=== PATIENT | male | born 1995 | race Caucasian/White ===

== ENCOUNTER 2016-11-04 10:26 | Inpatient (IN) | payer BC, MEDICAID ==
[~2016-11-04] VITALS: Ht 188 cm; Wt 218.6 kg
--- NOTE | ~2016-11-04 | DS ---
PATIENT'S NAME: FRITZ RECINOS [facility] AGE: 21 Y [address] ROOM: [id number] [place], [place] [address] LOCATION: GPCU ADMIT DATE: 11/04/2016 Discharge Summary DISCHARGE DATE: 11/08/2016 FAMILY PHYSICIAN: Bonilla Fletcher MD ATTENDING PHYSICIAN: Ciaran King PRIMARY DIAGNOSES: 1. Suicidal behavior with attempts. 2. Insulin overdose, intentional. 3. Autism. 4. Essential hypertension. 5. Morbid obesity. PRINCIPAL PROCEDURES DONE: None was indicated in the patient. LABORATORY DATA: WBC was stable throughout the hospital stay; the last one done prior to discharge was 11.7, H and H were stable throughout the hospital stay at 15.3/45.1, and platelets were 246, was stable throughout the hospital stay. Creatinine was stable throughout the hospital stay at 1.0 upon discharge, sodium was 137, potassium was 4.2, chloride was 103, bicarb was 27, calcium was 8.7, BUN was 12, and glucose was 123. Anion gap was normal. AST was 17 and ALT was 29. HOSPITAL COURSE: For history of present illness, please take a look at the H and P, which was done by Dr. King. The patient was admitted to Progressive Care Unit. He was put on one-to-one watch, given his suicidal behavior with intentional insulin overdose. He was started on 20% of dextrose, which was later de-escalated to 10% dextrose while his insulin regimen were put on hold throughout his whole hospital stay. Slowly his D10 was weaned down, and his blood sugar still remained stable at low 100s, and eventually on his hospital day two, his D10 dextrose 10% was discontinued, still also monitoring his blood sugars. His blood sugars remained stable through his whole hospital stay. Highest number that was observed was 214 while not receiving any insulin. By the second day of his hospital stay, the patient again mentioned to the Nursing team that he was going to hurt himself. He did get a Psych evaluation; however, after the patient was evaluated, the Psychiatry felt that the patient could go home and have an outpatient followup as the patient had denied any suicidal thoughts or plan. However, the night of the Psychiatric consult, the patient tried to wrap a cord around his neck. After this, the patient was put back on 1:1 from his initial q.15 minute watch by the psychiatrist. Plan at this point was for patient to be discharged to an [facility]patient [facility]. However, numerous facilities were attempted, which included [facility], but they all refused secondary to the nonavailability of bed space. The other secondary to the fact that the patient also had associated autistic disorder. PATIENT'S NAME: FRITZ RECINOS [facility] AGE: 21 Y [address] ROOM: [id number] [place], [place] [address] LOCATION: GPCU ADMIT DATE: 11/04/2016 Discharge Summary DISCHARGE DATE: 11/08/2016 FAMILY PHYSICIAN: Bonilla Fletcher MD ATTENDING PHYSICIAN: Ciaran King However, the night prior to discharge, the patient was calm and cooperative with his care, and did not demonstrate anymore suicidal behaviors. Please also note that during his hospital stay, a code lindsey was also called because of excessive violence by the patient as he insisted that he wanted to go home. However, on the day of discharge, the patient's mentation was stable. He denied any suicidal thoughts, and he was very cooperative with the Nursing team. Family also reported that this is the best that they have seen him mental martini for the last three days. Since all the inpatient psychiatric facilities were tried without success, it was then deemed that the patient could be discharged home. So, I did speak with the patient to try and be cooperative with his parents, and if any abnormal suicidal behavior is observed, that he will be brought back to the ER. This was also explained to the patient's family. MEDICATIONS UPON DISCHARGE: Include 1. Lipitor 10 mg p.o. daily. 2. Clonidine 0.2 mg p.o. three times daily. 3. Haldol 1 mg p.o. daily and Haldol 2 mg p.o. at bedtime. 4. Asenapine 10 mg sublingual everyday. 5. Lisinopril 5 mg p.o. daily. 6. Latuda 160 mg p.o. daily with food. 7. Klonopin 0.5 mg p.o. twice daily p.r.n. 8. Fluvoxamine 100 mg p.o. at bedtime. 9. Cogentin 2 mg p.o. twice daily. 10. Excedrin Migraine two capsules p.o. every 12 hours p.r.n. 11. Insulin lispro 60 units subq twice daily, start when blood sugar is greater than 250. 12. Insulin lispro 20 units subq daily before dinner, start when sugar is greater than 250. 13. Trulicity 0.5 mL subq on Sundays, start when sugar is greater than 300. 14. Insulin Tresiba 84 units subq daily, start when sugar is greater than 250. 15. Tramadol 50 mg p.o. three times daily as needed. Discharge time spent on this patient is approximately 35 minutes, which included a great deal of time spent with Care Management team to ensure safe discharge. MD CALI MACK/talia PATIENT'S NAME: FRITZ RECINOS [facility] AGE: 21 Y [address] ROOM: [place] [address] LOCATION: GPCU ADMIT DATE: 11/04/2016 Discharge Summary DISCHARGE DATE: 11/08/2016 FAMILY PHYSICIAN: Bonilla Fletcher MD ATTENDING PHYSICIAN: Ciaran King /[id number] d: 11/09/16 0336 t: 11/10/16 1441, DISCHARGE SUMMARY
--- NOTE | ~2016-11-04 | HP ---
PATIENT'S NAME: FRITZ RECINOS [facility] AGE: 21 Y [address] ROOM: [id number] [place], [place] [address] LOCATION: GPCU ADMIT DATE: 11/04/2016 History & Physical DISCHARGE DATE: FAMILY PHYSICIAN: SIOMARA JANE MD ATTENDING PHYSICIAN: ABHAY MASTERSON DATE OF SERVICE: CHIEF COMPLAINT: Overdosing of insulin. HISTORY OF PRESENT ILLNESS: This is a 21-year-old, male who has a diagnosis of diabetes, unclear is type 1 or type 2. Likely type 1 given his young age, and also has a history of autism. His home regimen of insulin is Tresiba subcutaneous long- acting insulin 84 units every morning and also Humalog subcutaneous insulin 16 units with breakfast and 16 units with lunch, and 20 units with dinner. In addition, on every Saturday, he also uses Trulicity which is a GLP-1 receptor agonist, anti-diabetic medication, and he uses 1.5 mg subcutaneous once weekly on every Saturday. Last dose of this was last Saturday. The patient lives alone, but his parents both mother and father live about two blocks away and usually, the parents come to see the son three times a day to make sure that the son is injecting the right amount of insulin. They do not give to him, but they supervise him. However, this morning, the patient called his parents telling them that he has already injected 530 units subcutaneous of Tresiba and also already injected 16 units of Humalog subcutaneously. Parents went to check on the son right away and they check the fingerstick glucose, it was read at 226. This was around 9:15 a.m. this morning. The patient denies any symptoms. He is very diaphoretic and this is very frequent due to his body size according to patient's parents. The patient's parents brought the patient here for further care. When I questioned the patient about if he tried to do this intentionally to hurt himself, he said yes. I asked twice and the parents also were in the room. When I asked him was he suicidal, he said yes. When I asked why, he would not answer me. The parents tell me that sometimes their son always say things like this just to try to get people's attention. This is the first time that patient has overdosed on insulin according to patient's parents. The patient's parents also denie any prior suicide attempt from the patient. In the emergency room, fingerstick glucose was checked. On arrival, it was 192. REVIEW OF SYSTEMS: As mentioned in the History of Present Illness. All other systems were reviewed and were negative except for those mentioned in the History of Present Illness. PATIENT'S NAME: FRITZ RECINOS [facility] AGE: 21 Y [address] ROOM: [id number] [place] [id number] LOCATION: GPCU ADMIT DATE: 11/04/2016 History & Physical DISCHARGE DATE: FAMILY PHYSICIAN: SIOMARA JANE MD ATTENDING PHYSICIAN: ABHAY MASTERSON PAST MEDICAL HISTORY: Insulin-dependent diabetes. ALLERGIES: NO KNOWN DRUG ALLERGIES. HOME MEDICATIONS: 1. Tresiba subcutaneous insulin 84 units every morning. 2. Subcutaneous insulin Humalog 16 units every morning with breakfast and 16 units with lunch, and also 20 units with dinner every day. 3. Subcutaneous Trulicity 1.5 mg every Saturday once a day. SOCIAL HISTORY: Parents denies any alcohol use or cigarette use or illegal drug use in the patient. FAMILY HISTORY: Both parents are healthy. PAST SURGICAL HISTORY: None. PHYSICAL EXAMINATION: VITAL SIGNS: At the time of evaluation, temperature is 97.5, heart rate is 95, respirations are 16, blood pressure is 129/93, and saturation 95% on room air. GENERAL APPEARANCE: The patient is diaphoretic, but the patient's parents say this is chronic for the patient due to his large body habitus. The patient is alert and oriented x3. Answers my questions appropriately, but sometimes he answers questions very slowly. In no acute distress. HEENT: Pupils equally round and reactive to light. Extraocular muscles intact. Anicteric sclerae. Nasal turbinates are normal bilaterally. Moist oral mucosa. NECK: No JVD. CARDIOVASCULAR: Regular rate and rhythm. Normal S1 and S2. No murmurs, no rubs, no gallops. RESPIRATORY: Clear to auscultation. ABDOMEN: Obese, soft, nontender, no mass, bowel sounds present, and no hepatosplenomegaly. EXTREMITIES: No edema in the upper or lower extremities. SKIN: No ulcer, no rash, no cyanosis. NEUROLOGICAL: Grossly nonfocal except that patient is very slow in answering questions sometimes, but he is alert and oriented x3. PATIENT'S NAME: FRITZ RECINOS [facility] AGE: 21 Y [address] ROOM: [id number] [place], [place] [address] [facility] AD[facility] DATE: 11/04/2016 History & Physical DISCHARGE DATE: FAMILY PHYSICIAN: SIOMARA JANE MD ATTENDING PHYSICIAN: ABHAY MASTERSON LABORATORY DATA: White blood cells 9.0, hemoglobin 15.6, hematocrit 46.4, and platelets 263,000. Glucose 193, BUN 14, creatinine 1.0, sodium 138, potassium 4.2, chloride 106, CO2 of 25, and calcium 8.6. Total protein 7.6, albumin 3.5, AST 17, ALT 29, alkaline phosphatase 84, total bilirubin 0.6, anion gap 11.2, globulin 4.1, and GFR is more than 60. A1c is pending. IMAGING STUDIES: None. EMERGENCY ROOM COURSE: In the emergency room, the patient was started on dextrose 10% running at 100 mL/h and checking the fingerstick glucose every 30 minutes. As of 11:45 a.m., fingerstick glucose was 185. ASSESSMENT AND PLAN: 1. Regarding his insulin overdose: Unclear if this is a suicide attempt or accidental overdose given the patient has autism and he is not reliable. Given that he did admit to wanting to hurt himself, therefore, the patient was put on suicidal precaution with one-on-one sitter in the room at all times and consult Psychiatry. Ambulate only with assistance, in case the patient becomes hypoglycemic which can put him at fall risk. Can have a diabetic diet. I will treat him with close monitoring of the fingerstick glucose every half an hour and keep running with the dextrose 10% at 100 mL/h, and titrate the rate as necessary depending on the fingerstick glucose level. Given that the dextrose 10% can lower sodium, his sodium is 138 on arrival. I will be checking the sodium level at 5:00 p.m., 11:00 p.m., 5:00 a.m., and also 11:00 a.m. to make sure he is not hyponatremic. Per up-to-date, the subcutaneous insulin Tresiba, the onset of action is 1 hour and half-life elimination is 25 hours and time to peak is 9 hours. Therefore, the patient will be admitted with close monitoring until we can make sure that patient is not hypoglycemic due to the long half-life elimination of this long-acting insulin and also the time to peak is 9 hours. Further plan will depend on clinical course. 2. Regarding his autism: This is chronic. Nothing can be done for the patient. Continue care by his parents. 3. Regarding his questionable suicidal attempt: Refer to #1 for all the details. 4. Code Status: He is a full code. The patient is his own legal guardian. Parents at the healthcare proxy. Time spent in care on the day of admission 43 minutes where more than half of the time was spent in counseling, and also going over the plan of care and also addressing all the questions and concerns that the patient and the patient's parents had. I answered all the questions to their satisfaction. PATIENT'S NAME: FRITZ RECINOS [facility] AGE: 21 Y [address] ROOM: [place] [address] [facility] ADMIT DATE: 11/04/2016 History & Physical DISCHARGE DATE: FAMILY PHYSICIAN: SIOMARA JANE MD ATTENDING PHYSICIAN: ABHAY MASTERSON The remainder of the time was spent in chart review, interview, and also on the physical examination. Further plan will depend on clinical course. ABHAY MASTERSON MD CC/modl /[id number] D: [id number] T: [id number] HISTORY & PHYSICAL
--- NOTE | ~2016-11-04 | ER ---
PATIENT'S NAME: FRITZ RECINOS [facility] AGE: 21 Y [address] ROOM: [id number] [place], [place] [address] [facility] AD[facility] DATE: 11/04/2016 ER/Outpatient Report DISCHARGE DATE: FAMILY PHYSICIAN: SIOMARA JANE MD ATTENDING PHYSICIAN: ABHAY MASTERSON Time of Arrival: 1026 hours. Time of Evaluation: 1035 hours. IDENTIFICATION: A 21-year-old male. CHIEF COMPLAINT: Overdose of insulin. HISTORY OF PRESENT ILLNESS: The patient is a 21-year-old male, type 1 diabetic, who has autism as well. His parents went to a baseball game last night. Normally, he lives in his own apartment, but they attend to his medications. He was left to use his own insulin and this morning instead of taking his usual 84 units of Tresiba, he took 530 units subcu along with his Humalog 16 units this morning that he normally would take. He normally is on Trulicity 1.5 mg subcu on Sundays, but he did not take this today. When I asked the patient and his family why he took this extra medication, they said it was for "attention." I asked if he was trying to harm himself, then he said "yes," when I asked him why he said "I do not know." PAST MEDICAL HISTORY: ALLERGIES: NO KNOWN DRUG ALLERGIES. CURRENT MEDICATIONS: 1. Tresiba 84 units daily, he took 530 units today. 2. Humalog 16 units q.a.m., 16 units at lunch, and 20 units with supper. 3. Trulicity 1.5 mg subcu on Sundays, but he did not take today. 4. Clonidine 0.2 mg b.i.d. 5. Fluvoxamine 100 mg b.i.d. 6. Haldol 2 mg 1/2 tablet in the morning and 1 tablet at bedtime. 7. Atorvastatin 10 mg daily. 8. Clonazepam 0.5 mg b.i.d. 9. Latuda 80 mg 2 tablets at night. 10. Benztropine 1 mg 2 tablets 2 times a day. 11. Lisinopril 5 mg daily. PATIENT'S NAME: FRITZ RECINOS [facility] AGE: 21 Y [address] 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 Hospitalized in February of 2016. SOCIAL HISTORY: The patient lives in his own apartment, but monitored by his parents. Tobacco use, denies. Alcohol use, denies. Drug use, denies. REVIEW OF SYSTEMS: All systems reviewed and negative other than what is noted in the HPI. PHYSICAL EXAMINATION: VITAL SIGNS: Height 6 feet 2 inches and weight 220 kg. Blood pressure 129/93, pulse 95, respirations 16, temperature 97.5, and saturations 95% on room air. GENERAL: An obese male, in no acute distress. He does appear a little bit diaphoretic. He said he is not having the low blood sugar reaction. When he checked, it was 224 prior to arrival; however, at this time, he is nervous. HEENT: Head: Normocephalic, atraumatic. Eyes: Pupils equal and reactive to light and accommodation. Extraocular movements intact. Nose: Mucosa pink. No lesions or drainage. Mouth: No lesions. Pharynx benign. NECK: Supple. No lymphadenopathy. No nuchal rigidity. LUNGS: Clear to auscultation. HEART: Regular rate and rhythm. No murmur, rub, or gallop. ABDOMEN: Bowel sounds present. Protuberant abdomen, soft, nondistended, nontender. SKIN: [place], warm, and dry. No lesions or rashes noted. NEURO: The patient is alert and oriented x4. Cranial nerves 2 through 12 grossly intact. Motor strength 5/5 throughout. Sensation is intact to light touch. MUSCULOSKELETAL: No bony abnormalities. PSYCH: The patient has fairly good eye contact, does seem a little agitated at times, and a flat affect. LABORATORY DATA: Sodium 138, potassium 4.2, chloride 106, CO2 of 25, BUN 14, creatinine 1.0. Blood sugar 193. Liver enzymes normal. Hemoglobin A1c 6.0. Hemoglobin 15.6, hematocrit 46.4, platelets 263, white count 9.0. Acetaminophen level and aspirin level pending at this time. IMPRESSION: 1. Insulin overdose: The patient is currently stable. An IV was initiated. D10W to run at 100 mL/h per Dr. Masterson, hospitalist, who will be admitting the patient. Dr. Masterson did evaluate the patient in the emergency room. PATIENT'S NAME: FRITZ RECINOS [facility] AGE: 21 Y [address] ROOM: [place] [address] [facility] ADMIT DATE: 11/04/2016 ER/Outpatient Report DISCHARGE DATE: FAMILY PHYSICIAN: SIOMARA JANE MD ATTENDING PHYSICIAN: ABHAY MASTERSON The checks were initially ordered hourly, but Dr. Masterson requested that they be every 30 minutes, so Accu-Chek ordered every 30 minutes, and the patient will be admitted in one-to-one observation. 2. Intentional overdose of insulin: Uncertain whether this was suicidal ideation as the patient has autism and it is difficult to obtain that information from him at this time, but he will be one-to-one observation and suicide precautions. 3. Autism. 4. Questionable bipolar disorder. ERICA REYNAGA MD CAR/modl /[id number] d: 11/04/16 1524 t: 11/10/16 2019, OUTPATIENT REPORT
--- NOTE | ~2016-11-04 | CON ---
PATIENT'S NAME: FRITZ RECINOS [facility] AGE: 21 Y [address] ROOM: [id number] [place], [place] [address] LOCATION: GPCU ADMIT DATE: 11/04/2016 Consultation DISCHARGE DATE: FAMILY PHYSICIAN: SIOMARA JANE MD ATTENDING PHYSICIAN: ABHAY MASTERSON DATE OF CONSULTATION: 11/06/2016 IDENTIFYING DATA: Fritz is a 21-year-old single [place] male who is unemployed, is on disability because of mental health reasons, lives here in [place], close to his parents. He is his own guardian. His parents are his POA. The patient is on med/surg floor, seen on request from his hospitalist physician Dr. Masterson after the patient overdosed on his insulin. The patient was seen one-to-one in his room. Also information obtained from his parents and from the nursing staff. CHIEF COMPLAINT: "I was just trying to get attention." HISTORY OF PRESENT ILLNESS: The patient states that he has been doing well. Denies any feeling of hopelessness or helplessness. Denies any current thoughts of hurting or killing himself or anybody else. States that he felt that his parents were ignoring him up after the event to see his younger brother playing a baseball game. States that they were not taking him seriously. There were telling him not to use the social media and states that he just needs closer observation. His parents mentioned that he does not have access to any of his medications except that day when they had to go out and they left the insulin with him. The patient ended up overdosing on that and they found him passed out. The patient states that he has lot of activities to do, has a cat to take care off, and does not feel like he is going to hurt himself and will be safe at home. Has a [employer] tournament coming up this week and is looking forward to that. He has no access to any sharp weapons, and his parents will be taking absolute control of his medications when he gets back home as per the mother. PAST PSYCHIATRIC HISTORY: Has had few hospitalizations in the past. States that he was at [facility] in 2011 for struggles with his moods and his behaviors. Currently, sees a therapist on a weekly basis. MEDICAL AND SURGICAL HISTORY: The patient has a history of diabetes, he is overweight, and for more details, please refer to the history and physical. PATIENT'S NAME: FRITZ RECINOS [facility] AGE: 21 Y [address] ROOM: [address] [place], [place] [address] [facility] ADMIT DATE: 11/04/2016 Consultation DISCHARGE DATE: FAMILY PHYSICIAN: SIOMARA JANE MD ATTENDING PHYSICIAN: ABHAY MASTERSON DRUG AND ALCOHOL HISTORY: None. FAMILY HISTORY: None. PERSONAL AND SOCIAL HISTORY: The patient lives here in [place] by himself, has daily activities, and he is his own guardian. His parents are his POA. MENTAL STATUS EXAM: The patient is alert, awake, and oriented to time, place, and person. He is cooperative with good hygiene and grooming. Appropriately dressed. Good eye contact. No psychomotor abnormalities. No rigidity or tremor. Affect is of normal range and intensity. It is related and appropriate. The mood is euthymic. Speech is fluent and spontaneous. Normal rate. No formal thought disorder. No suicidal or homicidal ideation. No psychosis. Fair insight and judgment. No problem with memory and concentration. ASSESSMENT: 1. Autistic spectrum disorder, mild to moderate. 2. Mood disorder, unspecified. 3. Impulse control disorder, unspecified. PLAN: At this time, the patient is not a candidate for hospitalization. He is not willing to go into the hospital. His parents are wanting to take him back home. They will have a better control over his medications and will be monitoring him closely, and if there are any concerns they have about his behaviors or his moods, they will bring him back to the hospital. At this time, no psychiatric followup is needed. He can be discharged once he is medically stable. If there is any psychiatric follow up needed, we will follow him p.r.n. Thanks for this referral. MD NATACHA MEJIA/modl /[id number] d: 11/06/162004 t: 06/28/17 1349, CONSULTATION REPORT
[~2016-11-04 10:26] MED LIST: BACTRIM DS1 TAB PO; CATAPRES0.1 MG PO; CATAPRES0.2 MG PO; COGENTIN1 MG PO; EXCEDRIN MIGRA1 EACH PO; FLUVOXAMINE MA100 MG PO; HALDOL2 MG PO; LATUDA80 MG PO; TENEX2 MG PO
[2016-11-04 10:59] LABS: BASOPHIL % 0.4 %; EOSINOPHIL # 0.1 K/uL (0.0-0.5); EOSINOPHIL % 1.3 %; HEMATOCRIT 46.4 % (37.0-53.0); HEMOGLOBIN 15.6 g/dL (12.0-17.0); IMMATURE GRANULOCYTE % 0.3 %; LYMPHOCYTE # 1.7 K/uL (0.8-4.0); MCH 27.6 pg (27.0-34.0); MCHC 33.6 gm/dL (32.0-36.5); MONOCYTE # 0.6 K/uL (0.0-1.0); MONOCYTE % 6.2 %; MPV 8.4 fl (9.4-12.4); NEUTROPHIL # (ANC) 6.6 K/uL (1.4-9.0); NEUTROPHIL % 72.8 %; NRBC % 0 /100WBC (0-0.00); PLATELET COUNT 263 K/uL (150-450); RDW-CV 14.3 % (11.9-14.6)
[2016-11-04 11:01] LABS: RBC 5.66 M/uL (4.00-6.00)
[2016-11-04 11:15] LABS: ALBUMIN 3.5 gm/dL (3.5-5.0); ALK PHOS 84 IU/L (33-138); ALT 29 IU/L (12-78); ANION GAP 11.2 (10.0-19.0); AST 17 IU/L (10-40); BLOOD UREA NITROGEN 14 mg/dL (6-24); CALCIUM 8.6 mg/dL (8.5-10.5); CHLORIDE 106 mMol/L (96-110); CO2 25 mMol/L (22-32); ESTIMATED GFR (MDRD EQUATION) > 60; POTASSIUM 4.2 mMol/L (3.7-5.1); SODIUM 138 mMol/L (135-145); TOTAL BILIRUBIN 0.6 mg/dL (0.0-1.5); TOTAL PROTEIN 7.6 g/dL (6.0-8.4)
[2016-11-04] MEDS ORDERED: LIPITOR10 MG PO (18:40)
[2016-11-04] MEDS ORDERED: HALDOL2 MG PO (18:46)
[2016-11-04] MEDS ORDERED: KLONOPIN0.5 MG PO (18:47)
[2016-11-04] MEDS ORDERED: PRINIVIL5 MG PO (18:50)
[2016-11-04] MEDS ORDERED: HUMALOG100 UNIT/3 SUB-Q ×2 (18:52→18:54)
[2016-11-04] MEDS ORDERED: TRULICITY1.5 MG/0.5 SUB-Q (18:58)
[2016-11-04] MEDS ORDERED: TRESIBA FL200 UNIT/1 SUB-Q (19:01)
[2016-11-04] MEDS ORDERED: TRAMADOL HCL50 MG PO (19:02)
[2016-11-04] MEDS ORDERED: SAPHRIS10 MG SL (19:04)
[2016-11-06 04:47] LABS: BASOPHIL # 0.1 K/uL (0.0-0.2); BASOPHIL % 0.6 %; EOSINOPHIL # 0.2 K/uL (0.0-0.5); EOSINOPHIL % 1.5 %; HEMATOCRIT 45.1 % (37.0-53.0); HEMOGLOBIN 15.3 g/dL (12.0-17.0); IMMATURE GRANULOCYTE % 0.3 %; LYMPHOCYTE # 2.7 K/uL (0.8-4.0); MCH 28.2 pg (27.0-34.0); MCHC 33.9 gm/dL (32.0-36.5); MCV 83.1 fl (83.0-98.0); MONOCYTE # 1.1 K/uL (0.0-1.0); MONOCYTE % 9.7 %; MPV 8.3 fl (9.4-12.4); NEUTROPHIL # (ANC) 7.6 K/uL (1.4-9.0); NEUTROPHIL % 64.9 %; NRBC % 0 /100WBC (0-0.00); PLATELET COUNT 246 K/uL (150-450); RBC 5.43 M/uL (4.00-6.00); RDW-CV 14.6 % (11.9-14.6); WBC 11.7 K/uL (4.0-11.0)
[2016-11-06 05:07] LABS: ANION GAP 10.1 (10.0-19.0); BLOOD UREA NITROGEN 9 mg/dL (6-24); CALCIUM 8.7 mg/dL (8.5-10.5); CHLORIDE 104 mMol/L (96-110); CO2 26 mMol/L (22-32); CREATININE 0.9 mg/dL (0.6-1.3); ESTIMATED GFR (MDRD EQUATION) > 60; POTASSIUM 4.1 mMol/L (3.7-5.1); SODIUM 136 mMol/L (135-145)
[2016-11-07 04:06] LABS: ANION GAP 11.2 (10.0-19.0); BLOOD UREA NITROGEN 12 mg/dL (6-24); CALCIUM 8.7 mg/dL (8.5-10.5); CHLORIDE 103 mMol/L (96-110); CO2 27 mMol/L (22-32); ESTIMATED GFR (MDRD EQUATION) > 60; POTASSIUM 4.2 mMol/L (3.7-5.1); SODIUM 137 mMol/L (135-145)
== END 2016-11-08 18:15 | disposition disaster alternative care site (69) | DRG 918 ==
LOC: GMED 10:26 → GPCU 11:27
PROVIDERS: Family Medicine; Hospitalist; ADMIT Internal Medicine
DX: T38.3X2A Poisoning by insulin and oral hypoglycemic [antidiabetic] drugs, intentional self-harm, initial encounter (principal); Z68.44 Body mass index [BMI] 60.0-69.9, adult; I10 Essential (primary) hypertension; F84.0 Autistic disorder; E10.9 Type 1 diabetes mellitus without complications; E66.01 Morbid (severe) obesity due to excess calories
CPT/HCPCS: G0480; J1650